=== PATIENT | female | born 1975 | race Asian ===

== ENCOUNTER 2019-08-10 09:17 | Emergency (ER) | payer OTHER ==
[2019-08-10 09:47] LABS: ABS Basophils 0.1 10^3/ul (0-0.2); ABS Eosinophils 0.2 10^3/ul (0-0.6); ABS Lymphocytes 2.8 10^3/ul (1.0-4.8); ABS Monocytes 0.8 10^3/ul (0-0.8); Eosinophil % 3.1 %; Hematocrit 37 % (35-47); Hemoglobin 12.4 g/dL (12.0-16.0); Lymphocyte % 40.6 %; Mean Corpuscular HGB Conc 34 g/dL (31-36); Mean Corpuscular Hemoglobin 30 pg (27-31); Mean Corpuscular Volume 89 fL (80-97); Mean Platelet Volume 7.4 fL (7.4-10.4); Nucleated Red Blood Cells % 0.1; Platelet Count 346 10^3/uL (150-450); Red Blood Count 4.15 10^6 /uL (3.70-4.87); Red Cell Distribution Width 13 % (10-15); White Blood Count 6.9 10^3/uL (3.5-10.8)
[2019-08-10 10:07] LABS: ALT 19 U/L (7-52); AST 16 U/L (13-39); Albumin 4.2 g/dL (3.2-5.2); Albumin/Globulin Ratio 1.2 (1-3); Alkaline Phosphatase 63 U/L (34-104); Anion Gap 6 mmol/L (2-11); BUN/Creatinine Ratio 17.6 (8-20); Blood Urea Nitrogen 13 mg/dL (6-24); CO2 Carbon Dioxide 27 mmol/L (22-32); Calcium 9.2 mg/dL (8.6-10.3); Chloride 104 mmol/L (101-111); EGFR African American 104.1 (>60); EGFR Non-African American 86.1 (>60); Globulin 3.5 g/dL (2-4); Glucose 90 mg/dL (70-100); Potassium 3.9 mmol/L (3.5-5.0); Sodium 137 mmol/L (135-145); Total Protein 7.7 g/dL (6.4-8.9)
[2019-08-10 10:12] LABS: HCG Pregnancy 0.89 mIU/mL
--- NOTE | 2019-08-10 10:16 | ED ---
HPI Chest Pain - HPI Summary HPI Summary: This patient is a 44 year old F presenting to [facility] with a chief complaint of dull chest since one week ago. Pt reports that in the last week and a half, pt had dull pain in her chest on the left side. It worsened with deep breaths. Then this morning the pain shifted to the center, and she report lying down alleviates it. Pt is sick, and has been sick on and off since March 2019. Pt has been producing a lot of mucus. She reports no fever recently, and no PMHx of heart issues. Pt has never been diagnosed with blood clots, no pain or swelling in leg, and has not been traveling recently. Pt does not have diabetes , and asthma. Patients FHx is unknown as she is adopted. Pt has previously had occurrences of chest pain beginning in 2014, and she came in to the ED but no issue was found. Pt has no PMHx of diabetes, and asthma. Pt does not smoke, and only drinks occasionally. Medications reviewed. Allergies noted. - History of Current Complaint Chief Complaint: EDChestWallPain Time Seen by Provider: 08/10/19 09:26 Hx Obtained From: Patient Hx Last Menstrual Period: ended 06/18/14 Onset/Duration: Started Days Ago Timing: Constant Current Severity: None Pain Intensity: 0 Pain Scale Used: 0-10 Numeric Chest Pain Location: Diffuse Character: Dull/Aching Aggravating Factor(s): Deep Breaths Alleviating Factor(s): Position Associated Signs and Symptoms: Positive: Chest Pain, Nasal Congestion - Allergy/Home Medications Allergies/Adverse Reactions: Allergies Allergy/AdvReac Type Severity Reaction Status Date / Time No Known Allergies Allergy Verified 08/10/19 09:21 Home Medications: Home Medications NK [No Home Medications Reported] 07/02/14 [History Confirmed 07/02/14] PMH/Surg Hx/FS Hx/Imm Hx Sensory History: Denies: Hx Legally Blind, Hx Deafness EENT History: Denies: Hx Deafness - Surgical History Surgery Procedure, Year, and Place: cleft palate Infectious Disease History: No Infectious Disease History: Denies: Traveled Outside the [place] in Last 30 Days - Family History Known Family History: Positive: Unknown - Pt is adopted - Social History Occupation: Employed Full-time Alcohol Use: Rare Substance Use Type: Reports: None Smoking Status (MU): Never Smoked Tobacco Review of Systems Positive: Nasal Discharge Positive: Chest Pain Negative: Edema - in legs All Other Systems Reviewed And Are Negative: Yes Physical Exam - Summary Physical Exam Summary: Constitutional: Well-developed, Well-nourished, Alert. (-) Distressed Skin: Warm, Dry HENT: Normocephalic; Atraumatic Eyes: Conjunctiva normal Neck: Musculoskeletal ROM normal neck. (-) JVD, (-) Stridor, (-) Tracheal deviation Cardio: Rhythm regular, rate normal, Heart sounds normal; Intact distal pulses; Radial pulses are 2+ and symmetric. (-) Murmur Pulmonary/Chest wall: Effort normal. (-) Respiratory distress, (-) Wheezes, (-) Rales Abd: Soft, (-) tenderness, (-) Distension, (-) Guarding, (-) Rebound Musculoskeletal: (-) Edema; no edema or swelling in legs. Lymph: (-) Cervical adenopathy Neuro: Alert, Oriented x3 Psych: Mood and affect Normal Triage Information Reviewed: Yes Vital Signs On Initial Exam: Initial Vitals Temp Pulse Resp BP Pulse Ox 99.3 F 82 19 150/95 100 08/10/19 09:18 08/10/19 09:18 08/10/19 09:18 08/10/19 09:18 08/10/19 09:18 Vital Signs Reviewed: Yes Procedures - Sedation Patient Received Moderate/Deep Sedation with Procedure: No Diagnostics - Vital Signs Vital Signs Temp Pulse Resp BP Pulse Ox 08/10/19 10:00 75 98 08/10/19 09:27 82 99 08/10/19 09:18 99.3 F 82 19 150/95 100 - Laboratory Lab Results: Lab Results 08/10/19 08/10/19 Range/Units 09:39 09:39 WBC 6.9 (3.5-10.8) 10^3/uL RBC 4.15 (3.70-4.87) 10^6 /uL Hgb 12.4 (12.0-16.0) g/dL Hct 37 (35-47) % MCV 89 (80-97) fL MCH 30 (27-31) pg MCHC 34 (31-36) g/dL RDW 13 (10-15) % Plt Count 346 (150-450) 10^3/uL MPV 7.4 (7.4-10.4) fL Neut % (Auto) 44.1 % Lymph % (Auto) 40.6 % Elbert % (Auto) 11.4 % Eos % (Auto) 3.1 % Baso % (Auto) 0.8 % Absolute Neuts (auto) 3.0 (1.5-7.7) 10^3/ul Absolute Lymphs (auto) 2.8 (1.0-4.8) 10^3/ul Absolute Monos (auto) 0.8 (0-0.8) 10^3/ul Absolute Eos (auto) 0.2 (0-0.6) 10^3/ul Absolute Basos (auto) 0.1 (0-0.2) 10^3/ul Absolute Nucleated RBC 0.0 10^3/ul Nucleated RBC % 0.1 Sodium 137 (135-145) mmol/L Potassium 3.9 (3.5-5.0) mmol/L Chloride 104 (101-111) mmol/L Carbon Dioxide 27 (22-32) mmol/L Anion Gap 6 (2-11) mmol/L BUN 13 (6-24) mg/dL Creatinine 0.74 (0.51-0.95) mg/dL Est GFR ( Amer) 104.1 (>60) Est GFR (Non-Af Amer) 86.1 (>60) BUN/Creatinine Ratio 17.6 (8-20) Glucose 90 (70-100) mg/dL Calcium 9.2 (8.6-10.3) mg/dL Total Bilirubin 0.50 (0.2-1.0) mg/dL AST 16 (13-39) U/L ALT 19 (7-52) U/L Alkaline Phosphatase 63 (34-104) U/L Troponin I 0.15 H* (<0.03) ng/mL Total Protein 7.7 (6.4-8.9) g/dL Albumin 4.2 (3.2-5.2) g/dL Globulin 3.5 (2-4) g/dL Albumin/Globulin Ratio 1.2 (1-3) Beta HCG, Quant Pending Result Diagrams: 08/10/19 09:39 08/10/19 09:39 Lab Statement: Any lab studies that have been ordered have been reviewed, and results considered in the medical decision making process. - Radiology CXR Radiology Interpretation Completed By: Radiologist Summary of Radiographic Findings: CXR reveals per radiologist IMPRESSION: No radiographic evidence of acute cardiopulmonary disease. ED physician has reviewed this radiology report. - CT Chest/Thorax CTA CT Interpretation Completed By: Radiologist Summary of CT Findings: Chest/Thorax CTA reveals, per radiologist IMPRESSION: No CT of evidence of pulmonary embolism or other CT apparent acute abnormality. ED physician has reviewed this radiology report. - EKG 1021 Cardiac Rate: NL EKG Rhythm: Sinus Rhythm Summary of EKG Findings: EKG at 10:21 reveals normal sinus rhythm with rate of 68 BPM, T-wave inversion in III .This EKG was reviewed and interpreted by ED physician. Re-Evaluation - Re-Evaluation First Eval Re-Evaluation Time: 10:16 Comment: trop of 0.15 Second Eval Re-Evaluation Time: 11:53 Comment: Discussed results with pt. Third Eval Re-Evaluation Time: 12:55 Comment: Discussed results and plan of care. Chest Pain Course/Dx - Course Course Of Treatment: Patient syrup 1.5 weeks of chest pain, cough, URI symptoms. Patient's overall well-appearing. Patient had a negative EKG for any ischemic changes. Patient's initial troponin did come back at 0.[address] was performed to evaluate for underlying PE. Patient's CTA was negative for PE. Patient then had a repeat troponin which was negative. Patient's story was not consistent with ACS and her troponin was unexplained. I called the lab and they state they tested the troponin 3 times at the first 2 being positive with a running negative. They repeated the troponin one more time and it was negative. The results are changed in the computer. Patient was discharged. - Diagnoses Provider Diagnoses: Bronchitis, Chest pain - Provider Notifications Discussed Care Of Patient With: Adrián Law Time Discussed With Above Provider: 11:46 Instructed by Provider To: Other - repeat trop before possible admission Discharge ED - Sign-Out/Discharge Documenting (check all that apply): Patient Departure - Discharge - Discharge Plan Condition: Stable Disposition: HOME Patient Education Materials: Chest Pain (ED), Acute Bronchitis (ED) Referrals: Zoë Do MD [Primary Care Provider] - 3 Days Additional Instructions: Follow up with PCP in 1-3 days. Take Motrin for pain. Return to ED if you have chest pain, trouble breathing, or any other concerning symptoms. - Billing Disposition and Condition Condition: STABLE Disposition: Home - Attestation Statements Document Initiated by Emmy: Yes Documenting Scribe: Alexandra Thurston Provider For Whom Emmy is Documenting (Include Credential): Dash Richards MD Scribe Attestation: Alexandra Pardo, scribed for Dash Richards MD on 08/10/19 at 1438. Scribe Documentation Reviewed: Yes Provider Attestation: The documentation as recorded by the Alexandra walker accurately reflects the service I personally performed and the decisions made by , Dash Richards MD Status of Scribe Document: Viewed
[2019-08-10] MEDS ORDERED: Iohexol 350* (CONTRAST) 500 ML MDV IV ONE (10:22)
[2019-08-10] MEDS ORDERED: Aspirin 81 mg CHEW TAB* 81 MG TAB.CHEW PO ONE (11:12)
[2019-08-10 12:41] LABS: C Reactive Protein 2.83 mg/L (<8.01)
[2019-08-10 13:31] VITALS: BP 129/71
== END 2019-08-10 13:40 | disposition home or self-care (01) ==
LOC: ED 09:17
DX: J40 Bronchitis, not specified as acute or chronic (principal); R07.89 Other chest pain; R09.81 Nasal congestion
CPT/HCPCS: 36415; 71046; 71275; 80053; 84484; 84702; 85025; 86140; 93005; 99283; A9270-GY; Q9967